=== PATIENT | male | born 1970 | race Caucasian/White ===

== ENCOUNTER 2017-10-22 08:16 | Emergency (ER) | payer OTHER ==
[2017-10-22 08:20] VITALS: O2SAT 98
--- NOTE | 2017-10-22 08:43 | ED PDOC ---
HPI: General Adult Time Seen by Provider: 10/22/17 08:20 Chief Complaint (Nursing): Weakness/Neurological Deficit Chief Complaint (Provider): "Cold outside needs some place to stay" History Per: Patient History/Exam Limitations: no limitations Additional Complaint(s): 47 year old male who suffers from chronic generalized weakness presents to the ED stating that 'it is cold outside and he needs a place to stay'. Patients states that his chronic medical condition gets worse in the cold. Denies nausea , vomiting, diarrhea, fevers, chills. Past Medical History Reviewed: Historical Data, Nursing Documentation, Vital Signs Vital Signs: Last Vital Signs Temp 97.9 F 10/22/17 08:20 Pulse 87 10/22/17 08:20 Resp 21 10/22/17 08:20 BP 130/81 10/22/17 08:20 Pulse Ox 98 10/22/17 08:56 - Medical History PMH: Chronic Pain Denies: Diabetes, HTN, Hyperlipidemia - Surgical History Surgical History: No Surg Hx - Family History Family History: States: Unknown Family Hx - Living Arrangements Living Arrangements: Other ([place]) - Social History Current smoker - smoking cessation education provided: Yes (Heavy Smoker > 10 Cigarettes Daily; smoker for 25 years) Ex-Smoker (has not smoked in the last 12 months): Yes Alcohol: > 2 Drinks/Day Drugs: Denies - Home Medications Home Medications: Ambulatory Orders Medication Instructions Recorded No Known Home Med 01/27/16 - Allergies Allergies/Adverse Reactions: Allergies Allergy/AdvReac Type Severity Reaction Status Date / Time nut - unspecified Allergy Verified 10/21/17 13:04 Review of Systems ROS Statement: Except As Marked, All Systems Reviewed And Found Negative Constitutional: Positive for: Weakness (chronic generalized weakness). Negative for: Fever, Chills Gastrointestinal: Negative for: Nausea, Vomiting, Diarrhea Musculoskeletal: Positive for: Other (pain all over) Physical Exam - Reviewed Nursing Documentation Reviewed: Yes Vital Signs Reviewed: Yes - Physical Exam Appears: Positive for: Non-toxic, No Acute Distress Head Exam: Positive for: ATRAUMATIC, NORMAL INSPECTION, NORMOCEPHALIC Skin: Positive for: Normal Color, Warm, Dry. Negative for: Rash Eye Exam: Positive for: Normal appearance, EOMI, PERRL. Negative for: Nystagmus ENT: Positive for: Normal ENT Inspection Neck: Positive for: Normal, Painless ROM, Supple Cardiovascular/Chest: Positive for: Regular Rate, Rhythm, Chest Non Tender. Negative for: Tachycardia Respiratory: Positive for: Normal Breath Sounds. Negative for: Wheezing, Respiratory Distress Gastrointestinal/Abdominal: Positive for: Normal Exam, Bowel Sounds, Soft. Negative for: Tenderness, Guarding Back: Positive for: Normal Inspection. Negative for: L CVA Tenderness, R CVA Tenderness Extremity: Positive for: Normal ROM, Other (strength 3/5 on all extremeties). Negative for: Tenderness, Deformity, Swelling Neurologic/Psych: Positive for: Alert, nurse general duty II-XII, Oriented. Negative for: Motor/Sensory Deficits - ECG O2 Sat by Pulse Oximetry: 98 (RA) Pulse Ox Interpretation: Normal - Progress ED Course And Treament: 1124: Stable. Tolerated PO. Moving around with no issues. Will dc and fu with pcp. AAOx3. Medical Decision Making Medical Decision Makin Initial Impression 47 y/o male presents to the ED bed seeking Initial Plan: * Accucheck * reevalution Documented by Heather Lange acting as a scribe for Steve Weeks MD. All medical record entries made by the Scribe were at my direction and personally dictated by me. I have reviewed the chart and agree that the record accurately reflects my personal performance of the history, physical exam, medical decision making, and the department course for this patient. I have also personally directed, reviewed, and agree with the discharge instructions and disposition. Disposition - Clinical Impression Clinical Impression: Chronic pain - Patient ED Disposition Is Patient to be Admitted: No Counseled Patient/Family Regarding: Diagnosis, Need For Followup - Disposition Referrals: [facility] [Outside] - 10/23/17 Disposition: Routine/Home Disposition Time: 11:25 Condition: STABLE Additional Instructions: Return if not better in 3 days. Instructions: Chronic Pain (ED)
[2017-10-22 12:31] VITALS: BP 128/78; PULSE 78; RESP 17; TEMP 97
== END 2017-10-22 12:31 | disposition home or self-care (01) ==
LOC: H.ER 08:16
DX: G89.29 Other chronic pain (principal); F17.210 Nicotine dependence, cigarettes, uncomplicated

== ENCOUNTER 2017-11-03 20:53 | Emergency (ER) | payer OTHER ==
[2017-11-03 21:02] VITALS: BP 138/80; PULSE 105; RESP 16; TEMP 98.5; O2SAT 98
--- NOTE | 2017-11-03 21:18 | ED PDOC ---
HPI: General Adult Time Seen by Provider: 11/03/17 21:08 Chief Complaint (Nursing): Medical Clearance Past Medical History Vital Signs: Last Vital Signs Temp 98.5 F 11/03/17 21:00 Pulse 105 H 11/03/17 21:00 Resp 16 11/03/17 21:00 BP 138/80 11/03/17 21:00 Pulse Ox 98 11/03/17 21:00 - Medical History PMH: Chronic Pain Denies: Diabetes, HTN, Hyperlipidemia - Family History Family History: States: Unknown Family Hx - Home Medications Home Medications: Ambulatory Orders Medication Instructions Recorded No Known Home Med 01/27/16 - Allergies Allergies/Adverse Reactions: Allergies Allergy/AdvReac Type Severity Reaction Status Date / Time nut - unspecified Allergy Verified 10/21/17 13:04 - ECG O2 Sat by Pulse Oximetry: 98 Disposition - Clinical Impression Clinical Impression: Normal exam - Patient ED Disposition Is Patient to be Admitted: No Counseled Patient/Family Regarding: Diagnosis, Need For Followup - Disposition Disposition: Routine/Home Disposition Time: 21:14 Condition: GOOD Instructions: Normal Exam (ED)
== END 2017-11-03 21:41 | disposition home or self-care (01) ==
LOC: H.ER 20:53
DX: Z00.00 Encounter for general adult medical examination without abnormal findings (principal)